=== PATIENT | female | born 1985 | race Caucasian/White ===

== ENCOUNTER → 2023-05-04 07:12 | Outpatient (REF) | payer BC, SELFPAY | LOC: HWRAD 07:12 | PROVIDERS: ATTENDING PHYSICIAN Nurse Practitioner Family | DX: R59.1 Generalized enlarged lymph nodes (principal) | CPT/HCPCS: 76882 ==

== ENCOUNTER → 2023-06-07 06:33 | Day surgery (SDC) | payer BC, SELFPAY | LOC: GI 06:33 | PROVIDERS: ATTENDING PHYSICIAN Internal Medicine Gastroenterology | DX: K63.5 Polyp of colon (principal); K51.00 Ulcerative (chronic) pancolitis without complications; K64.0 First degree hemorrhoids; Z86.010 Personal history of colon polyps | CPT/HCPCS: 45380; 88305; 88341; 88342 ==

== ENCOUNTER 2023-06-08 11:33 | Emergency (ER) | payer BC, SELFPAY ==
[2023-06-08 11:35] VITALS: BP 145/109
--- NOTE | 2023-06-08 12:31 | ED.GENMED ---
History of Present Illness
General
Chief Complaint: Blood Pressure Problem
Time Seen by Provider: 06/08/23 12:31
Travel History
Have you had any contact with someone who has COVID-19?: No
Do you have any symptoms of coronavirus? Fever > 100 degrees, chills, cough, shortness of breath, sore throat, loss of taste or smell, muscle aches, or headache?: No
History of Present Illness
History of Present Illness:
HPI: The patient had an uneventful colonoscopy yesterday (follow-up for ulcerative colitis). Today around 10 AM while 'sitting [employer] doing work', she had abrupt onset sensation of chills, near syncope, and shortly thereafter
developed left-sided facial and left sided extremity paresthesias. The paresthesias are still persisting. She never had any chest pain or shortness of breath. She also checked her blood pressure and she was getting systolics in the 150s to 160s
range and heart rate was also elevated. She did not think this was related to anxiety. She also says that she checked her blood sugar and it was normal.
EXAM:
GENERAL: Well appearing in no distress
HEENT: Moist oral mucosa
CARDIOVASCULAR: No murmurs, normal heart rate and rhythm, No chest wall tenderness
PULMONARY: No respiratory distress, breath sounds are clear and equal
ABDOMEN: Soft with no peritoneal signs, no tenderness
NEUROLOGIC: Excellent strength all extremities, no coordination deficits, no definite sensory deficits
PSYCHIATRIC: Appropriate mental status, normal insight and judgement
EXTREMITIES: Nontender, no edema, moves all extremities equally
SKIN: No rash, no lesions
ED COURSE:
12:40 PM: I initially evaluated
NUMBER AND COMPLEXITY OF PROBLEMS ADDRESSED AT THE ENCOUNTER
� Chronic conditions affecting care: Former smoker, eczema, anxiety/depression, ulcerative colitis
� Acute Exacerbation and/or Progression of Chronic Illness: This is an acute problem
� Differential Diagnosis includes: Anxiety, electrolyte abnormality, TIA/CVA
AMOUNT AND/OR COMPLEXITY OF DATA TO BE REVIEWED AND ANALYZED
� I performed an independent evaluation of and my interpretation is:
EKG: Sinus 71, nonspecific ST abnormality
CT: CT brain unremarkable
X-rays:
Laboratory Studies: CBC and chemistries unremarkable, folate is 12.0, TSH low but free T4 is normal
Other:
� Review of other/old records: Records indicate that echo was obtained last year due to a syncopal event that showed an EF of 55 to 60% and showed no valvular disease or regional wall motion abnormalities.
� Clinical information was obtained by an independent historian: None needed
� Prescriptions/Medications Considered but not given:
� Further testing considered but not performed:
RISK OF COMPLICATIONS AND/OR MORBIDITY OR MORTALITY OF PATIENT MANAGEMENT
� Social determinants of health affecting care: Lives at home
� Discussion with other providers: I discussed with on-call neurology, Dr. Domínguez who suggested adding some additional labs but no further recommendations
� Escalation of care including admission/observation vs risk of discharge considered: ED workup unremarkable. I reassessed the patient just prior to discharge and she is tells me that 30 minutes earlier, she had resolution of
her symptoms.
Past History
Past History
ED Past Medical History: Other (Hemorrhoids); Negative Asthma, HTN, Hypercholesterolemia or NIDDM
ED Past Surgical History:
Social History
Tobacco: Former smoker
Alcohol: Occasional
Personal:
Living: with family
Phy Exam
Physical Exam
Physical Exam:
See HPI
Course
Orders/Labs/Results
Orders:
Orders
06/08/23 11:42
Electrocardiogram (*1) Urgent
Reason for Study: Chest Pain
EKG- Treatment ONCE
06/08/23 12:42
CT Head W/o Iv Contrast Urgent
Comment:
Reason For Exam: L sided paresthesias
06/08/23 13:36
B12 [Vitamin B12] Urgent
Basic Metabolic Panel Urgent
Complete Blood Count/With Diff Urgent
Folate Urgent
Free T4 Urgent
Magnesium Urgent
TSH Reflex To Free T4 Urgent
Abnormal Lab Results
06/08/23
13:36
RBC 4.15 L 10^6/uL
(4.20-5.40)
Hct 36.9 L %
(37.0-47.0)
TSH (Reflex) 0.19 L uIU/ml
(0.47-4.68)
06/08/23 13:36
06/08/23 13:36
Vital Signs
Initial and Last Documented VS:
Initial Vital Signs
Temp Pulse Resp BP Pulse Ox
98.4 F 82 20 145/109 99
06/08/23 11:35 06/08/23 11:35 06/08/23 11:35 06/08/23 11:35 06/08/23 11:35
Last Documented Vital Signs
Temp Pulse Resp BP Pulse Ox
98.4 F 75 20 122/81 99
06/08/23 11:35 06/08/23 14:49 06/08/23 11:35 06/08/23 14:49 06/08/23 11:35
*Critical Care Note
Total Time (30-74mins, 75-104mins- exclusive of procedures): Not Applicable
ED Attending Note
-
Portions of this chart may have been created with voice recognition software.� Occasional wrong word or��sound alike� substitutions may have occurred due to the inherent limitations of voice recognition software.
Discharge Plan
Departure
Patient Disposition: Home (Routine Discharge)
Date of Disposition: 06/08/23
Time of Disposition: 14:41
Patient with high blood pressure during this ER visit?: Yes
Discharge Problem:
Paresthesias
Instructions: Paresthesia (DC), BLOOD PRESSURE
Prescriptions:
No Action
multivitamin with folic acid [Tab-A-Edith] 1 TABLET tablet
1 tab PO HS
prednisone 20 MG tablet
60 mg PO DAILY Qty: 60 0RF
Rx Instructions:
decrease by 10mg every week
ferrous sulfate [FeroSul] 325 MG tablet
325 mg PO DAILY Qty: 30 0RF
mesalamine 800 MG tablet,delayed release (DR/EC)
1,600 mg PO BID Qty: 120 0RF
pantoprazole 40 MG tablet,delayed release (DR/EC)
40 mg PO DAILY Qty: 30 0RF
Referrals:
Nicolas Domínguez MD [Active] - Next open appointment
Brook Moody MD [Family Provider] -
Activity Restrictions/Additional Instructions:
The cause of your symptoms is unclear. Basic blood work including electrolytes is normal. CAT scan of the brain is unremarkable. I have given you the contact information for the neurologist that I spoke to today.
Interventions
Interventions:
*Risk Screen - Suicide Last Done: 06/08/23 11:35
*General Assessment Last Done: 06/08/23 11:35
*Neglect/Abuse Screening Last Done: 06/08/23 11:35
ED- Fall Risk Assessment Last Done: 06/08/23 13:37
*ED COVID-19 Vaccine History Last Done: 06/08/23 13:37
*Nursing Disposition Last Done: 06/08/23 14:49
ED- Cardiac Assessment Last Done: 06/08/23 13:37
ED- Neurological Assessment Last Done: 06/08/23 13:37
ED- Pulmonary Assessment Last Done: 06/08/23 13:37
Discharge Date and Time
Discharge Date/Time: 06/08/23 14:50
[2023-06-08 13:39] VITALS: BP 132/90
[2023-06-08 13:45] LABS: % Basophils 0.6 % (0-2); % Eosinophils 0.4 % (0-6); % Immature Granulocytes 0.3 % (0-0.5); % Lymphocytes 28.1 % (20.5-51.1); % Monocytes 6.4 % (1.7-9.3); % Neutrophils 64.2 % (42.2-75.2); Absolute Lymphocytes 1.9 10^3/uL (1.2-3.4); Absolute Monocytes 0.4 10^3/uL (0.1-0.6); Absolute Neutrophils 4.4 10^3/uL (1.4-6.5); Hematocrit 36.9 % (37.0-47.0); Hemoglobin 12.8 g/dL (12.0-16.0); Mean Corp Hgb Conc. 34.7 g/dL (33.0-37.0); Mean Corpuscular Hgb 30.8 pg (27.0-31.0); Mean Corpuscular Volume 88.9 fL (81.0-99.0); Mean Platelet Volume 9.2 fL (7.4-10.4); Nucleated Red Blood Cells % 0 %; Platelet Count 193 10^3/uL (130-400); Red Blood Cell Count 4.15 10^6/uL (4.20-5.40); Red Cell Dist. Width 11.6 % (11.5-14.5); White Blood Cell Count 6.9 10^3/uL (4.8-10.8)
[2023-06-08 13:59] LABS: Blood Urea Nitrogen 11 mg/dl (7-17); Calcium 9.7 mg/dl (8.4-10.2); Carbon Dioxide 25 mmol/L (22-30); Chloride 105 mmol/L (98-107); Glucose 83 mg/dl (70-99); Sodium 137 mmol/L (135-145); eGFR > 60.00
[2023-06-08 14:43] VITALS: BP 122/81
[2023-06-08 14:49] VITALS: BP 122/81
[2023-06-08 14:50] LABS: TSH Reflex To Free T4 0.19 uIU/ml (0.47-4.68)
[2023-06-08 15:17] LABS: Free T4 1.35 ng/dl (0.78-2.19)
[2023-06-08 16:25] LABS: Vitamin B12 416 pg/ml (239-931)
== END 2023-06-08 14:50 | disposition home or self-care (01) ==
LOC: EMR 11:33
PROVIDERS: EMERGENCY PHYSICIAN Emergency Medicine; FAMILY PHYSICIAN Internal Medicine
DX: R20.2 Paresthesia of skin (principal); R03.0 Elevated blood-pressure reading, without diagnosis of hypertension; Z87.891 Personal history of nicotine dependence
CPT/HCPCS: 99285; 70450; 80048; 82607; 82746; 83735; 84439; 84443; 85025; 93005

== ENCOUNTER → 2024-03-08 07:38 | Outpatient (REF) | payer BC, SELFPAY | LOC: HWRAD 07:38 | PROVIDERS: ATTENDING PHYSICIAN Internal Medicine Gastroenterology; FAMILY PHYSICIAN Nurse Practitioner Family | DX: R74.8 Abnormal levels of other serum enzymes (principal) | CPT/HCPCS: 76700 ==

== ENCOUNTER 2024-12-05 06:26 | Day surgery (SDC) | payer BC, SELFPAY | END 2024-12-05 12:18 | disposition home or self-care (01) | LOC: GI 06:26 | PROVIDERS: ATTENDING PHYSICIAN Internal Medicine Gastroenterology | DX: K51.00 Ulcerative (chronic) pancolitis without complications (principal); K64.9 Unspecified hemorrhoids; Z86.0100 Personal history of colon polyps, unspecified | CPT/HCPCS: 45380; 88305 ==